=== PATIENT | female | born 1955 ===

== ENCOUNTER 2020-12-21 09:13 | Outpatient (CLI) | payer OTHER | END 2020-12-21 09:15 | disposition home or self-care (01) | LOC: SONOGRAMA 09:13 | PROVIDERS: ATTEND Pathology Anatomic Pathology & Clinical Pathology | DX: D34 Benign neoplasm of thyroid gland (principal); E06.5 Other chronic thyroiditis; E04.2 Nontoxic multinodular goiter ==